=== PATIENT | female | born 1950 | race Caucasian/White ===

== ENCOUNTER 2017-08-07 12:09 | Emergency (ER) | payer OTHER ==
[~2017-08-07] VITALS: Ht 157.5 cm; Wt 84.4 kg
[2017-08-07 17:05] VITALS: BP 135/70
== END 2017-08-07 17:05 | disposition home or self-care (01) ==
LOC: ED 12:09
DX: M16.11 Unilateral primary osteoarthritis, right hip (principal); F17.210 Nicotine dependence, cigarettes, uncomplicated
CPT/HCPCS: 99406

== ENCOUNTER 2018-05-07 13:00 | Emergency (ER) | payer OTHER ==
[~2018-05-07] VITALS: Ht 160 cm; Wt 79.5 kg
[2018-05-07 13:02] VITALS: BP 128/48; Ht 160 cm; Wt 79.5 kg
== END 2018-05-07 14:11 | disposition home or self-care (01) ==
LOC: ED 13:00
DX: H92.01 Otalgia, right ear (principal)

== ENCOUNTER 2018-05-28 11:51 | Emergency (ER) | payer OTHER ==
[~2018-05-28] VITALS: Ht 167.6 cm; Wt 80.7 kg
[2018-05-28 12:01] VITALS: Ht 167.6 cm; Wt 80.7 kg
[2018-05-28 13:05] LABS: CALCIUM 8.5 mg/dL (8.5-10.1); CARBON DIOXIDE 23.6 mmol/L (21-32); CHLORIDE SERUM 110 mmol/L (98-107); CREATININE SERUM 0.7 mg/dL (0.6-1.0); GFR1 > 60 mL/min; GLUCOSE SERUM 81 mg/dL (74-106); POTASSIUM SERUM 3.4 mmol/L (3.5-5.1); SODIUM SERUM 141 mmol/L (136-145)
[2018-05-28 13:49] VITALS: BP 142/86
== END 2018-05-28 13:49 | disposition home or self-care (01) ==
LOC: ED 11:51
PROVIDERS: Emergency Medicine
DX: M65.221 Calcific tendinitis, right upper arm (principal); M25.552 Pain in left hip
CPT/HCPCS: 36415; J1885